=== PATIENT | male | born 1930 | race Caucasian/White ===

== ENCOUNTER → 2017-03-08 | Outpatient (CLI) | payer MEDICARE, OTHER ==
[~2017-03-08] MED LIST: ASPIRIN81 M1; BACTRIM 400-801 EACH PO; BENAZAPRIL; PROTONIX PO; TAMSULOSIN HCL0.4 MG; TYLENOL PO
--- NOTE | 2017-03-08 15:23 | Diagnostic Imaging Report ---
LOWER LEG LEFT, ANKLE 3+ VIEWS LEFT HISTORY: Chronic venous hypertension with ulcer. Pain. Lower leg ulcer. Swelling of left ankle. COMPARISON: None available. FINDINGS: Bones: No acute displaced fracture. Joints: Severe, advanced osteoarthrosis of the left ankle with loss of height of the talar dome. Status post total left knee arthroplasty with prosthesis in adequate position without evidence of loosening. Soft tissues: The soft tissues appear unremarkable. Vascular calcifications. Trace suprapatellar effusion. Bimalleolar soft tissue swelling. 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 Signed by: Dr. Tato Hernandez M.D. on 03/08/2017 3:20 PM
== END ==
LOC: RAD 14:06
PROVIDERS: ATTEND Podiatrist Foot & Ankle Surgery
DX: I87.332 Chronic venous hypertension (idiopathic) with ulcer and inflammation of left lower extremity (principal); L97.829 Non-pressure chronic ulcer of other part of left lower leg with unspecified severity

== ENCOUNTER 2017-03-29 11:58 | Outpatient (RCR) | payer MEDICARE, OTHER ==
[~2017-03-29 11:58] MED LIST changes: +COLLAGENASE OINTMENT 30 GM TUBE ONE; +LIDOCAINE VISC 2% SOLN 15 ML UDC ONE
== END 2017-04-04 ==
LOC: WCC 11:58
PROVIDERS: ATTEND Podiatrist Foot & Ankle Surgery
DX: I87.332 Chronic venous hypertension (idiopathic) with ulcer and inflammation of left lower extremity (principal); L97.329 Non-pressure chronic ulcer of left ankle with unspecified severity; L03.116 Cellulitis of left lower limb; R60.0 Localized edema; I87.2 Venous insufficiency (chronic) (peripheral)
CPT/HCPCS: 11042 ×2; 15004; 29581; 87071; 87075; 87186; 87205; 97602; G0463 ×3

== ENCOUNTER 2017-04-19 01:00 | Outpatient (RCR) | payer MEDICARE, OTHER ==
[~2017-04-19 01:00] MED LIST changes: -COLLAGENASE OINTMENT 30 GM TUBE ONE; +LIDOCAINE/PRILOCAINE 2.5-2.5% KIT ONE
[2017-04-19] MEDS ORDERED: LIDOCAINE VISC 2% SOLN 15 ML UDC ONE (18:21)
[2017-04-19] MEDS ORDERED: COLLAGENASE OINTMENT 30 GM TUBE ONE (18:21)
== END 2017-05-02 ==
LOC: WCC 01:00
PROVIDERS: ATTEND Podiatrist Foot & Ankle Surgery
DX: I87.332 Chronic venous hypertension (idiopathic) with ulcer and inflammation of left lower extremity (principal); R60.0 Localized edema; L97.828 Non-pressure chronic ulcer of other part of left lower leg with other specified severity; I87.2 Venous insufficiency (chronic) (peripheral); L03.116 Cellulitis of left lower limb

== ENCOUNTER 2017-05-31 12:28 | Outpatient (RCR) | payer MEDICARE, OTHER ==
[~2017-05-31 12:28] MED LIST changes: +COLLAGENASE OINTMENT 30 GM TUBE ONE; -LIDOCAINE/PRILOCAINE 2.5-2.5% KIT ONE
== END 2017-06-02 ==
LOC: WCC 12:28
PROVIDERS: ATTEND Podiatrist Foot & Ankle Surgery
DX: I87.332 Chronic venous hypertension (idiopathic) with ulcer and inflammation of left lower extremity (principal); L03.116 Cellulitis of left lower limb; R60.0 Localized edema; I87.2 Venous insufficiency (chronic) (peripheral)

== ENCOUNTER 2017-06-27 10:42 | Outpatient (RCR) | payer MEDICARE, OTHER ==
[~2017-06-27 10:42] MED LIST changes: +MINERAL OIL/PETROLAT/GLYCERI 6OZ BTL ONE
[2017-06-27] MEDS ORDERED: MINERAL OIL/PETROLAT/GLYCERI 6OZ BTL ONE (17:38)
== END 2017-07-02 ==
LOC: WCC 10:42
PROVIDERS: ATTEND Internal Medicine Infectious Disease
DX: I87.332 Chronic venous hypertension (idiopathic) with ulcer and inflammation of left lower extremity (principal); L97.828 Non-pressure chronic ulcer of other part of left lower leg with other specified severity; L03.116 Cellulitis of left lower limb; R60.0 Localized edema; I87.2 Venous insufficiency (chronic) (peripheral)
CPT/HCPCS: 87071; 87075; 87186; 87205

== ENCOUNTER 2017-06-29 13:55 | Outpatient (RCR) | payer MEDICARE, OTHER ==
[~2017-06-29 13:55] MED LIST changes: -COLLAGENASE OINTMENT 30 GM TUBE ONE; -LIDOCAINE VISC 2% SOLN 15 ML UDC ONE; -MINERAL OIL/PETROLAT/GLYCERI 6OZ BTL ONE
== END 2017-07-02 ==
LOC: WCC 13:55
PROVIDERS: ATTEND Internal Medicine Infectious Disease
DX: I87.332 Chronic venous hypertension (idiopathic) with ulcer and inflammation of left lower extremity (principal); L97.828 Non-pressure chronic ulcer of other part of left lower leg with other specified severity; L03.116 Cellulitis of left lower limb; R60.0 Localized edema; I87.2 Venous insufficiency (chronic) (peripheral)

== ENCOUNTER 2017-07-31 10:45 | Outpatient (RCR) | payer MEDICARE, OTHER ==
[~2017-07-31 10:45] MED LIST changes: +COLLAGENASE OINTMENT 30 GM TUBE ONE; +LIDOCAINE VISC 2% SOLN 15 ML UDC ONE; +MINERAL OIL/PETROLAT/GLYCERI 6OZ BTL ONE; +MUPIROCIN 2% OINT 22 GM TUBE ONE; +TRIAMCINOLONE ACET 0.1% CREAM 15 GM TUBE ONE
[2017-07-31] MEDS ORDERED: MINERAL OIL/PETROLAT/GLYCERI 6OZ BTL ONE (15:24)
== END 2017-08-02 ==
LOC: WCC 10:45
PROVIDERS: ATTEND Internal Medicine Infectious Disease
DX: I87.332 Chronic venous hypertension (idiopathic) with ulcer and inflammation of left lower extremity (principal); L97.828 Non-pressure chronic ulcer of other part of left lower leg with other specified severity; L03.116 Cellulitis of left lower limb; I87.2 Venous insufficiency (chronic) (peripheral)

== ENCOUNTER 2017-08-10 10:39 | Outpatient (RCR) | payer MEDICARE, OTHER ==
[~2017-08-10 10:39] MED LIST changes: -COLLAGENASE OINTMENT 30 GM TUBE ONE; -MINERAL OIL/PETROLAT/GLYCERI 6OZ BTL ONE; -MUPIROCIN 2% OINT 22 GM TUBE ONE; -TRIAMCINOLONE ACET 0.1% CREAM 15 GM TUBE ONE
[2017-08-10] MEDS ORDERED: MINERAL OIL/PETROLAT/GLYCERI 6OZ BTL ONE (15:07)
== END 2017-09-01 ==
LOC: WCC 10:39
PROVIDERS: ATTEND Internal Medicine Infectious Disease
DX: I87.332 Chronic venous hypertension (idiopathic) with ulcer and inflammation of left lower extremity (principal); L97.828 Non-pressure chronic ulcer of other part of left lower leg with other specified severity; L03.116 Cellulitis of left lower limb; I87.2 Venous insufficiency (chronic) (peripheral); R60.0 Localized edema

== ENCOUNTER 2018-01-29 11:43 | Outpatient (RCR) | payer MEDICARE, OTHER ==
[~2018-01-29 11:43] MED LIST changes: -LIDOCAINE VISC 2% SOLN 15 ML UDC ONE; +SODIUM CHLORIDE 0.9% INJ 250 ML BAG ONE
[2018-01-29] MEDS ORDERED: LIDOCAINE VISC 2% SOLN 15 ML UDC ONE (15:29)
== END 2018-02-01 ==
LOC: WCC 11:43
PROVIDERS: ATTEND Podiatrist Foot & Ankle Surgery
DX: I87.331 Chronic venous hypertension (idiopathic) with ulcer and inflammation of right lower extremity (principal); L97.419 Non-pressure chronic ulcer of right heel and midfoot with unspecified severity; L03.116 Cellulitis of left lower limb; I87.2 Venous insufficiency (chronic) (peripheral); L84 Corns and callosities
CPT/HCPCS: 11042 ×2; 99203; J7050

== ENCOUNTER → 2018-03-04 | Outpatient (RCR) | payer MEDICARE, OTHER ==
[~2018-03-04] MED LIST changes: +LIDOCAINE VISC 2% SOLN 15 ML UDC ONE; +LIDOCAINE/PRILOCAINE 2.5-2.5% KIT ONE; +MINERAL OIL/PETROLAT/GLYCERI 6OZ BTL ONE; -SODIUM CHLORIDE 0.9% INJ 250 ML BAG ONE
== END ==
LOC: WCC 02-05 10:22
PROVIDERS: ATTEND Podiatrist Foot & Ankle Surgery
DX: I87.331 Chronic venous hypertension (idiopathic) with ulcer and inflammation of right lower extremity (principal); L97.419 Non-pressure chronic ulcer of right heel and midfoot with unspecified severity; L03.116 Cellulitis of left lower limb; I87.2 Venous insufficiency (chronic) (peripheral); L84 Corns and callosities

== ENCOUNTER → 2018-08-02 | Outpatient (RCR) | payer MEDICARE, OTHER ==
[2018-07-19 14:58] LABS: BASOPHILS % 0.3 % (0.0-1.0); EOSINOPHILS # (AUTO) 0.2 (0.0-0.4); EOSINOPHILS % 2.2 % (0.0-6.0); HEMATOCRIT 35.3 % (38.2-49.6); HEMOGLOBIN 11.1 g/dL (14.0-18.0); LYMPHOCYTES # (AUTO) 2.3 (1.0-3.2); LYMPHOCYTES % 21.2 % (18.0-39.1); MEAN CORPUSCULAR HEMOGLOBIN 26.1 pg (28-32); MEAN CORPUSCULAR HGB CONC 31.4 g/dL (31-35); MEAN CORPUSCULAR VOLUME 83.1 fL (81-99); MONOCYTES # (AUTO) 0.8 (0.2-0.8); MONOCYTES % 7.7 % (4.4-11.3); NEUTROPHILS # (AUTO) 7.3 (2.1-6.9); NEUTROPHILS % 68.1 % (38.7-80.0); PLATELET COUNT 304 x10e3/uL (140-360); RED BLOOD COUNT 4.25 x10e6/uL (4.3-5.7); RED CELL DISTRIBUTION WIDTH 13.7 % (11.7-14.4)
[2018-07-19 15:18] LABS: ALANINE AMINOTRANSFERASE 8 IU/L (0-55); ALBUMIN 2.9 g/dL (3.5-5.0); ALBUMIN/GLOBULIN RATIO 0.5 (0.8-2.0); ALKALINE PHOSPHATASE 77 IU/L (40-150); ANION GAP 12.9 mmol/L (8-16); BLOOD UREA NITROGEN 12 mg/dL (7-26); BUN/CREATININE RATIO 16 (6-25); CALCIUM 9.6 mg/dL (8.4-10.2); CARBON DIOXIDE 25 mmol/L (22-29); CHLORIDE 107 mmol/L (98-107); CREATININE, SERUM 0.75 mg/dL (0.72-1.25); EST GLOMERULAR FILTRATION RATE > 60 ML/MIN (60-); GLUCOSE 89 mg/dL (74-118); POTASSIUM 3.9 mmol/L (3.5-5.1); SODIUM 141 mmol/L (136-145)
[~2018-08-02] MED LIST changes: +COLLAGENASE OINTMENT 30 GM TUBE ONE; -MINERAL OIL/PETROLAT/GLYCERI 6OZ BTL ONE
== END ==
LOC: WCC 07-19 13:48
PROVIDERS: ATTEND Podiatrist
DX: I87.311 Chronic venous hypertension (idiopathic) with ulcer of right lower extremity (principal); L97.319 Non-pressure chronic ulcer of right ankle with unspecified severity; L03.116 Cellulitis of left lower limb; I87.2 Venous insufficiency (chronic) (peripheral); R60.0 Localized edema
CPT/HCPCS: 36415; 80053; 83036; 84134; 85025

== ENCOUNTER 2018-08-30 14:02 | Outpatient (RCR) | payer MEDICARE, OTHER | END 2018-09-01 | LOC: WCC 14:02 | PROVIDERS: ATTEND Podiatrist | DX: I87.311 Chronic venous hypertension (idiopathic) with ulcer of right lower extremity (principal); L97.319 Non-pressure chronic ulcer of right ankle with unspecified severity; L03.116 Cellulitis of left lower limb; R60.0 Localized edema; I87.2 Venous insufficiency (chronic) (peripheral) ==

== ENCOUNTER → 2018-09-06 | Outpatient (CLI) | payer MEDICARE, OTHER ==
[~2018-09-06] MED LIST changes: -COLLAGENASE OINTMENT 30 GM TUBE ONE; -LIDOCAINE VISC 2% SOLN 15 ML UDC ONE; -LIDOCAINE/PRILOCAINE 2.5-2.5% KIT ONE
== END ==
LOC: RAD 15:11
PROVIDERS: ATTEND Podiatrist
DX: I87.311 Chronic venous hypertension (idiopathic) with ulcer of right lower extremity (principal); L97.319 Non-pressure chronic ulcer of right ankle with unspecified severity; R60.0 Localized edema; S92.311A Displaced fracture of first metatarsal bone, right foot, initial encounter for closed fracture; I87.2 Venous insufficiency (chronic) (peripheral); L03.116 Cellulitis of left lower limb; S97.81XA Crushing injury of right foot, initial encounter

== ENCOUNTER 2018-09-27 15:12 | Outpatient (RCR) | payer MEDICARE, OTHER ==
--- NOTE | 2018-09-06 16:46 | Diagnostic Imaging Report ---
Exam: Right foot series, 3 views. Clinical History: Trauma Comparison: None Findings: There is a mildly displaced acute fracture of the base of the first metatarsal, likely with intra-articular extension to the first TMT joint. No other fractures identified. There is severe diffuse osteopenia. Severe degenerative changes involve the tibiotalar joint with [id number] contact, subchondral cyst formation, and marked osteophyte formation. Severe degenerative changes also involve the first MTP joint. Plantar calcaneal spur. Impression: Mildly displaced acute fracture of base of first metatarsal, likely with intra-articular extension to the first tarsometatarsal joint. Severe degenerative changes involving the tibiotalar joint and first MTP joint. Signed by: Eugenia Sena MD on 09/06/2018 4:42 PM
[~2018-09-27 15:12] MED LIST changes: +LIDOCAINE/PRILOCAINE 2.5-2.5% KIT ONE; +MINERAL OIL/PETROLAT/GLYCERI 6OZ BTL ONE
== END 2018-10-02 ==
LOC: WCC 15:12
PROVIDERS: ATTEND Podiatrist
DX: I87.311 Chronic venous hypertension (idiopathic) with ulcer of right lower extremity (principal); L97.319 Non-pressure chronic ulcer of right ankle with unspecified severity; S92.311A Displaced fracture of first metatarsal bone, right foot, initial encounter for closed fracture; L03.116 Cellulitis of left lower limb; I87.2 Venous insufficiency (chronic) (peripheral); R60.0 Localized edema
CPT/HCPCS: 15271 ×2; 15275 ×2; 29515 ×2; 29580 ×5; 36415; 73630; 82306; 82310; 83519; 99213 ×2; Q4101 ×2; Q4186 ×2

== ENCOUNTER 2018-11-01 15:12 | Outpatient (RCR) | payer MEDICARE, OTHER ==
[~2018-11-01 15:12] MED LIST changes: +LIDOCAINE VISC 2% SOLN 15 ML UDC ONE; -MINERAL OIL/PETROLAT/GLYCERI 6OZ BTL ONE
== END 2018-11-02 ==
LOC: WCC 15:12
PROVIDERS: ATTEND Podiatrist
DX: I87.311 Chronic venous hypertension (idiopathic) with ulcer of right lower extremity (principal); L97.319 Non-pressure chronic ulcer of right ankle with unspecified severity; S92.311A Displaced fracture of first metatarsal bone, right foot, initial encounter for closed fracture; L03.116 Cellulitis of left lower limb; S97.81XA Crushing injury of right foot, initial encounter; R60.0 Localized edema; I87.2 Venous insufficiency (chronic) (peripheral)
CPT/HCPCS: 15271 ×2; 15275 ×2; 29580 ×4; Q4186 ×4

== ENCOUNTER 2018-11-22 14:05 | Outpatient (RCR) | payer MEDICARE, OTHER ==
[~2018-11-22 14:05] MED LIST changes: -LIDOCAINE VISC 2% SOLN 15 ML UDC ONE; +MINERAL OIL/PETROLAT/GLYCERI 6OZ BTL ONE
== END 2018-12-02 ==
LOC: WCC 14:05
PROVIDERS: ATTEND Podiatrist
DX: I87.311 Chronic venous hypertension (idiopathic) with ulcer of right lower extremity (principal); L97.319 Non-pressure chronic ulcer of right ankle with unspecified severity; L03.116 Cellulitis of left lower limb; I83.12 Varicose veins of left lower extremity with inflammation; I87.2 Venous insufficiency (chronic) (peripheral); R60.0 Localized edema; S92.311A Displaced fracture of first metatarsal bone, right foot, initial encounter for closed fracture; S97.81XA Crushing injury of right foot, initial encounter

== ENCOUNTER 2019-01-01 13:57 | Outpatient (RCR) | payer MEDICARE, OTHER ==
[~2019-01-01 13:57] MED LIST changes: +LIDOCAINE VISC 2% SOLN 15 ML UDC ONE; +MINERAL OIL/PETROLAT/GLYCERI 2OZ CRM ONE
[2019-01-01] MEDS ORDERED: MINERAL OIL/PETROLAT/GLYCERI 6OZ BTL ONE (19:22)
[2019-01-01] MEDS ORDERED: LIDOCAINE/PRILOCAINE 2.5-2.5% KIT ONE (19:22)
== END 2019-01-02 ==
LOC: WCC 13:57
PROVIDERS: ATTEND Podiatrist
DX: I87.311 Chronic venous hypertension (idiopathic) with ulcer of right lower extremity (principal); L97.319 Non-pressure chronic ulcer of right ankle with unspecified severity; L03.116 Cellulitis of left lower limb; I83.12 Varicose veins of left lower extremity with inflammation; R60.0 Localized edema; I87.2 Venous insufficiency (chronic) (peripheral); S92.311A Displaced fracture of first metatarsal bone, right foot, initial encounter for closed fracture; S97.81XA Crushing injury of right foot, initial encounter

== ENCOUNTER 2019-01-29 15:12 | Outpatient (RCR) | payer MEDICARE, OTHER ==
[2019-01-29] MEDS ORDERED: LIDOCAINE VISC 2% SOLN 15 ML UDC ONE (16:33)
== END 2019-02-01 ==
LOC: WCC 15:12
PROVIDERS: ATTEND Podiatrist
DX: L97.319 Non-pressure chronic ulcer of right ankle with unspecified severity (principal); L03.116 Cellulitis of left lower limb; I83.12 Varicose veins of left lower extremity with inflammation; R60.0 Localized edema; S92.311A Displaced fracture of first metatarsal bone, right foot, initial encounter for closed fracture; S97.81XA Crushing injury of right foot, initial encounter

== ENCOUNTER → 2019-09-08 | Outpatient (CLI) | payer MEDICARE, OTHER ==
[~2019-09-08] MED LIST changes: -LIDOCAINE VISC 2% SOLN 15 ML UDC ONE; -LIDOCAINE/PRILOCAINE 2.5-2.5% KIT ONE; -MINERAL OIL/PETROLAT/GLYCERI 2OZ CRM ONE; -MINERAL OIL/PETROLAT/GLYCERI 6OZ BTL ONE
--- NOTE | 2019-09-08 16:20 | Diagnostic Imaging Report ---
EXAM: FOOT LEFT COMPLETE DATE: 09/08/2019 1:37 PM INDICATION: ^[id number] ^[id number] ^CHRONIC VENOUS HYPERTENSION W/ ULCER LEFT HEEL COMPARISON: Left ankle, 03/08/2017 FINDINGS: 3 views of the left foot shows no displaced fracture or dislocation. There is advanced degenerative change at the first MP joint. Again noted is advanced degenerative change at the tibiotalar joint. Soft tissues are irregular posterior to the calcaneus, likely representing injury or ulceration. No underlying destructive acute bony abnormalities identified. There are scattered small vessel arterial calcification seen. IMPRESSION: No acute bony abnormality. Degenerative changes most prominent at the first MP joint and at the ankle. Soft tissue injury or ulceration posterior to the calcaneus with no underlying bony lesion seen. Signed by: Dr. Bubba Boles M.D. on 09/08/2019 4:16 PM
== END ==
LOC: RAD 13:21
PROVIDERS: ATTEND Podiatrist
DX: I87.332 Chronic venous hypertension (idiopathic) with ulcer and inflammation of left lower extremity (principal); L97.421 Non-pressure chronic ulcer of left heel and midfoot limited to breakdown of skin

== ENCOUNTER 2019-09-24 14:13 | Outpatient (RCR) | payer MEDICARE, OTHER ==
[2019-09-03 16:29] LABS: BASOPHILS % 0.2 % (0.0-1.0); EOSINOPHILS # (AUTO) 0.2 (0.0-0.4); EOSINOPHILS % 2.5 % (0.0-6.0); HEMATOCRIT 35.4 % (38.2-49.6); HEMOGLOBIN 10.6 g/dL (14.0-18.0); LYMPHOCYTES # (AUTO) 2.3 (1.0-3.2); LYMPHOCYTES % 26.1 % (18.0-39.1); MEAN CORPUSCULAR HEMOGLOBIN 24.4 pg (28-32); MEAN CORPUSCULAR HGB CONC 29.9 g/dL (31-35); MEAN CORPUSCULAR VOLUME 81.4 fL (81-99); MONOCYTES # (AUTO) 0.7 (0.2-0.8); MONOCYTES % 8.2 % (4.4-11.3); NEUTROPHILS # (AUTO) 5.5 (2.1-6.9); NEUTROPHILS % 62.7 % (38.7-80.0); PLATELET COUNT 303 x10e3/uL (140-360); RED BLOOD COUNT 4.35 x10e6/uL (4.3-5.7); RED CELL DISTRIBUTION WIDTH 15.8 % (11.7-14.4)
[2019-09-03 16:39] LABS: ALANINE AMINOTRANSFERASE 8 IU/L (0-55); ALBUMIN 3.1 g/dL (3.5-5.0); ALBUMIN/GLOBULIN RATIO 0.6 (0.8-2.0); ALKALINE PHOSPHATASE 124 IU/L (40-150); ANION GAP 13.3 mmol/L (8-16); BLOOD UREA NITROGEN 13 mg/dL (7-26); BUN/CREATININE RATIO 15 (6-25); CALCIUM 8.9 mg/dL (8.4-10.2); CARBON DIOXIDE 25 mmol/L (22-29); CHLORIDE 107 mmol/L (98-107); CREATININE, SERUM 0.84 mg/dL (0.72-1.25); EST GLOMERULAR FILTRATION RATE > 60 ML/MIN (60-); GLUCOSE 85 mg/dL (74-118); POTASSIUM 4.3 mmol/L (3.5-5.1); SODIUM 141 mmol/L (136-145)
[~2019-09-24 14:13] MED LIST changes: +AMMONIUM LACTATE 12% LOTION 225GM BTL ONE; +LIDOCAINE/PRILOCAINE 2.5-2.5% KIT ONE; +SILVER SULFADIAZINE 50GM CREAM ONE
== END 2019-10-03 ==
LOC: WCC 14:13
PROVIDERS: ATTEND Podiatrist
DX: L97.421 Non-pressure chronic ulcer of left heel and midfoot limited to breakdown of skin (principal); L03.116 Cellulitis of left lower limb; R60.9 Edema, unspecified; I83.12 Varicose veins of left lower extremity with inflammation; S92.311A Displaced fracture of first metatarsal bone, right foot, initial encounter for closed fracture; S97.81XA Crushing injury of right foot, initial encounter
CPT/HCPCS: 36415; 80053; 84134; 85025; 85651; 86140

== ENCOUNTER 2019-10-08 14:30 | Outpatient (RCR) | payer MEDICARE, OTHER ==
[~2019-10-08 14:30] MED LIST changes: -AMMONIUM LACTATE 12% LOTION 225GM BTL ONE; +FLUOCINONIDE 0.05% 1 EA/15 GM TUBE ONE; -LIDOCAINE/PRILOCAINE 2.5-2.5% KIT ONE; -SILVER SULFADIAZINE 50GM CREAM ONE
== END 2019-11-03 ==
LOC: WCC 14:30
PROVIDERS: ATTEND Podiatrist
DX: I87.332 Chronic venous hypertension (idiopathic) with ulcer and inflammation of left lower extremity (principal); L97.421 Non-pressure chronic ulcer of left heel and midfoot limited to breakdown of skin; L03.116 Cellulitis of left lower limb; I87.2 Venous insufficiency (chronic) (peripheral); R60.9 Edema, unspecified; S97.81XA Crushing injury of right foot, initial encounter

== ENCOUNTER 2020-04-28 16:01 | Outpatient (RCR) | payer MEDICARE, OTHER ==
[2020-04-07 16:56] LABS: BASOPHILS % 0.3 % (0.0-1.0); EOSINOPHILS # (AUTO) 0.4 (0.0-0.4); EOSINOPHILS % 3.8 % (0.0-6.0); HEMATOCRIT 33.6 % (38.2-49.6); HEMOGLOBIN 10.1 g/dL (14.0-18.0); LYMPHOCYTES # (AUTO) 1.6 (1.0-3.2); LYMPHOCYTES % 17.1 % (18.0-39.1); MEAN CORPUSCULAR HEMOGLOBIN 25.1 pg (28-32); MEAN CORPUSCULAR HGB CONC 30.1 g/dL (31-35); MEAN CORPUSCULAR VOLUME 83.6 fL (81-99); MONOCYTES # (AUTO) 0.8 (0.2-0.8); MONOCYTES % 8.3 % (4.4-11.3); NEUTROPHILS # (AUTO) 6.7 (2.1-6.9); PLATELET COUNT 230 x10e3/uL (140-360); RED BLOOD COUNT 4.02 x10e6/uL (4.3-5.7); RED CELL DISTRIBUTION WIDTH 15.1 % (11.7-14.4)
[2020-04-07 17:14] LABS: ALANINE AMINOTRANSFERASE 11 IU/L (0-55); ALBUMIN 2.8 g/dL (3.5-5.0); ALBUMIN/GLOBULIN RATIO 0.5 (0.8-2.0); ALKALINE PHOSPHATASE 83 IU/L (40-150); ANION GAP 14.8 mmol/L (8-16); BLOOD UREA NITROGEN 11 mg/dL (7-26); BUN/CREATININE RATIO 14 (6-25); CALCIUM 8.3 mg/dL (8.4-10.2); CARBON DIOXIDE 22 mmol/L (22-29); CHLORIDE 106 mmol/L (98-107); CREATININE, SERUM 0.78 mg/dL (0.72-1.25); EST GLOMERULAR FILTRATION RATE > 60 ML/MIN (60-); GLUCOSE 121 mg/dL (74-118); POTASSIUM 3.8 mmol/L (3.5-5.1); SODIUM 139 mmol/L (136-145)
[~2020-04-28 16:01] MED LIST changes: -FLUOCINONIDE 0.05% 1 EA/15 GM TUBE ONE; +LIDOCAINE VISC 2% SOLN 15 ML UDC ONE
== END 2020-05-02 ==
LOC: WCC 16:01
PROVIDERS: ATTEND Podiatrist
DX: I87.322 Chronic venous hypertension (idiopathic) with inflammation of left lower extremity (principal); I87.332 Chronic venous hypertension (idiopathic) with ulcer and inflammation of left lower extremity; L97.822 Non-pressure chronic ulcer of other part of left lower leg with fat layer exposed; L03.116 Cellulitis of left lower limb; R60.0 Localized edema; I87.2 Venous insufficiency (chronic) (peripheral); S97.81XA Crushing injury of right foot, initial encounter
CPT/HCPCS: 36415; 80053; 83036; 84134; 85025; 85651; 86140

== ENCOUNTER 2020-05-26 15:09 | Outpatient (RCR) | payer MEDICARE, OTHER ==
[~2020-05-26 15:09] MED LIST changes: -LIDOCAINE VISC 2% SOLN 15 ML UDC ONE; +LIDOCAINE/PRILOCAINE 2.5-2.5% KIT ONE
== END 2020-06-02 ==
LOC: WCC 15:09
PROVIDERS: ATTEND Podiatrist
DX: I87.322 Chronic venous hypertension (idiopathic) with inflammation of left lower extremity (principal); I87.332 Chronic venous hypertension (idiopathic) with ulcer and inflammation of left lower extremity; L97.822 Non-pressure chronic ulcer of other part of left lower leg with fat layer exposed; L03.116 Cellulitis of left lower limb; R60.0 Localized edema; S97.81XA Crushing injury of right foot, initial encounter

== ENCOUNTER → 2020-09-24 | Day surgery (SDC) | payer MEDICARE, OTHER ==
[2020-09-21 12:09] LABS: BASOPHILS % 0.2 % (0.0-1.0); EOSINOPHILS # (AUTO) 0.2 (0.0-0.4); EOSINOPHILS % 2.2 % (0.0-6.0); HEMATOCRIT 35.8 % (38.2-49.6); HEMOGLOBIN 10.6 g/dL (14.0-18.0); LYMPHOCYTES # (AUTO) 2.1 (1.0-3.2); MEAN CORPUSCULAR HEMOGLOBIN 24.1 pg (28-32); MEAN CORPUSCULAR HGB CONC 29.6 g/dL (31-35); MEAN CORPUSCULAR VOLUME 81.4 fL (81-99); MONOCYTES # (AUTO) 0.8 (0.2-0.8); MONOCYTES % 9.3 % (4.4-11.3); NEUTROPHILS % 62.1 % (38.7-80.0); PLATELET COUNT 304 x10e3/uL (140-360); RED CELL DISTRIBUTION WIDTH 15.1 % (11.7-14.4)
[2020-09-21 12:34] LABS: ANION GAP 10.8 mmol/L (8-16); CALCIUM 8.7 mg/dL (8.4-10.2); CREATININE, SERUM 0.78 mg/dL (0.72-1.25); POTASSIUM 3.8 mmol/L (3.5-5.1)
[2020-09-21 16:32] LABS: ALBUMIN 2.8 g/dL (3.5-5.0); BILIRUBIN,DIRECT 0.2 mg/dL (0.0-0.5)
[~2020-09-24] MED LIST changes: +BUPIVACAINE HCL 0.5% INJ 30 ML VIAL INJ ONE; +DEXAMETHASONE SOD PHOS INJ 4 MG/ML VIAL ONE; +LIDOCAINE HCL 2% LOCAL INJ 5 ML SDV VIAL INJ ONE; -LIDOCAINE/PRILOCAINE 2.5-2.5% KIT ONE; +ONDANSETRON HCL INJ 2MG/ML 2ML 2 MG/ML VIAL ONE; +POVIDONE IODINE 0.05% 0.05 % ML PO ONE; +PROPOFOL IV EMULSION 10 MG/ML 20 ML VIAL ONE; +SEVOFLURANE INHAL SOLN 250 ML PEN BTL ONE
[2020-09-24 14:45] VITALS: BP 148/83
== END | disposition home or self-care (01) ==
LOC: OR 09:49
PROVIDERS: ATTEND Surgery
DX: L72.0 Epidermal cyst (principal); J44.9 Chronic obstructive pulmonary disease, unspecified
CPT/HCPCS: 36415; 71046; 80048; 80076; 85025; 88304; 93005; J1100; J2001; J2405